=== PATIENT | female | born 1945 | race Caucasian/White ===

== ENCOUNTER → 2016-12-22 | Outpatient (CLI) | payer MEDICARE, OTHER ==
--- NOTE | 2016-12-23 16:09 | MAM ---
History: Well woman exam. Date of exam: 12/22/2016 Services provided: Bilateral full field digital screening mammography. CAD, the images were reviewed with R2 computer aided detection. FINDINGS: Glandular tissue is scattered glandular pattern. Focal asymmetry left breast 1:00. No dominant mass or architectural distortion. IMPRESSION: Incomplete exam. Recommendation: True lateral left breast with spot films. Directed US if indicated clinically. BIRAD CATEGORY: 0 INCOMPLETE Electronically signed by: Shira Fernández MD 12/23/2016 4:08 PM CDT
== END | disposition home or self-care (01) ==
LOC: MAMMO 08:14
PROVIDERS: ATTEND Family Medicine
DX: Z12.31 Encounter for screening mammogram for malignant neoplasm of breast (principal)

== ENCOUNTER → 2017-01-19 | Outpatient (CLI) | payer MEDICARE, OTHER ==
--- NOTE | 2017-01-19 13:57 | MAM ---
History: Mammographic asymmetry left breast. DATE OF SERVICE: 12/22/2016 Services provided: Full field digital diagnostic left mammography. FINDINGS: True lateral view, spot in exaggerated lateral and true lateral projection, axillary tail views are performed and correlated with screening evaluation from 12/22/2016. This represents baseline examination. No persistent asymmetry is noted. A normal appearance to the glandular tissue is confirmed. IMPRESSION: Benign exam. Questioned asymmetry represented a superimposition of otherwise normal glandular tissue. No mammographic abnormality persists on diagnostic evaluation. Recommendation: Routine annual mammography. Findings and recommendations were communicated to the patient. BIRAD CATEGORY: 2 BENIGN Electronically signed by: Shira Fernández MD 01/19/2017 1:57 PM CDT Workstation: [id number]
== END | disposition home or self-care (01) ==
LOC: MAMMO 13:00
PROVIDERS: ATTEND Family Medicine
DX: R92.8 Other abnormal and inconclusive findings on diagnostic imaging of breast (principal)
CPT/HCPCS: 77065; G0206

== ENCOUNTER → 2017-11-09 | Outpatient (CLI) | payer MEDICARE, OTHER ==
--- NOTE | 2017-11-09 10:37 | US ---
THYROID ULTRASOUND CLINICAL INFORMATION: Thyroid nodule. TECHNIQUE: Standard transcutaneous scanning: Two-dimensional and Doppler modes. COMPARISON: No prior ultrasound examinations available. FINDINGS: Thyroid size: Right lobe: 4.7 x 1.6 x 1.5 cm. Left lobe 4.8 x 1.7 x 1.0 centimeters. Isthmus 2.8 mm. Texture: Heterogeneous Estimated total number of nodules >/=1 cm: 2 Number of spongiform nodules >/=2 cm not described below (TR1): 0 Number of mixed cystic and solid nodules >/=1.5 cm not described below (TR2): 0 Nodule #: 1 Maximum size: 2.8 cm; All dimensions 1.7 x 1.2 cm Location: left; lower Composition: solid/almost completely solid (2) Echogenicity: hypoechoic (2) Shape: not [id number]-fnih-tvwj (0) Margins: smooth (0) Echogenic foci: none (0) ACR TI-RADS total points: 4. ACR TI-RADS risk category: TR4 (4-6 points) ACR TI-RADS recommendation: Ultrasound-guided fine needle aspiration Nodule #: 2 Maximum size: 1.0 cm; All dimensions 0.8 x 0.8 cm Location: right; mid Composition: solid/almost completely solid (2) Echogenicity: very hypoechoic (3) Shape: not mdytel-yqmy-qkod (0) Margins: smooth (0) Echogenic foci: peripheral calcifications (2) ACR TI-RADS total points: 7. ACR TI-RADS risk category: TR5 (>/=7 points) ACR TI-RADS recommendation: Ultrasound-guided fine needle aspiration Nodule #: 3 Maximum size: 0.7 cm; All dimensions 0.7 x 0.6 cm Location: right; lower Composition: solid/almost completely solid (2) Echogenicity: hypoechoic (2) Shape: not fguzca-mbpz-kbix (0) Margins: smooth (0) Echogenic foci: large comet-tail artifacts (0) ACR TI-RADS total points: 4. ACR TI-RADS risk category: TR4 (4-6 points) ACR TI-RADS recommendation: Follow-up ultrasound in 1 year Nodule #: 4 Maximum size: 0.7 cm; All dimensions 0.7 x 0.5 cm Location: right; upper Composition: solid/almost completely solid (2) Echogenicity: hypoechoic (2) Shape: not bbhkuj-bwgy-eyzj (0) Margins: smooth (0) Echogenic foci: none (0) ACR TI-RADS total points: 4.. ACR TI-RADS risk category: TR4 (4-6 points) ACR TI-RADS recommendation: Follow-up ultrasound in 1 year No distinct solid mass or cyst in the adjacent soft tissues. No parenchymal edema or calcifications. Normal Doppler vascularity. IMPRESSION: 1. 2.8 cm hypoechoic solid mass in the lower left lobe with well-defined margins, parallel orientation, and no calcifications. ACR TI RADS risk category TR 4. Recommend recommend ultrasound-guided fine-needle aspiration sampling. Please see below.* 2. 1.0 cm very hypoechoic solid mass in the mid right thyroid lobe with peripheral calcifications. Well marginated with parallel orientation. ACR TI RADS risk category TR 5. Recommend ultrasound-guided fine-needle aspiration sampling. 3. Hypoechoic solid masses in the right thyroid lobe less than 1 cm in diameter. Well marginated with parallel orientation and no calcifications. ACR TI RADS risk category TR 4. Since these are less than 1 cm diameter, one year ultrasound follow-up is recommended. *ACR TI-RADS recommendations: TR5 (>/=7 points) - FNA if >/=1 cm, follow-up if 0.5 - 0.9 cm every year for 5 years TR4 (4-6 points) - FNA if >/=1.5 cm, follow-up if 1 - 1.4 cm in 1, 2, 3 and 5 years TR3 (3 points) - FNA if >/=2.5 cm, follow -up if 1.5 - 2.4 cm in 1, 3 and 5 years TR2 (2 points) and TR1 (0 points) - No FNA or follow-up * ACR TI-RADS recommends that no more than two nodules with the highest ACR TI-RADS total point should be biopsied and no more than four nodules should be followed. Electronically signed by: Tim Cortes MD 11/09/2017 10:35 AM CDT
== END ==
LOC: US 08:57
PROVIDERS: ATTEND Family Medicine
DX: E04.1 Nontoxic single thyroid nodule (principal)

== ENCOUNTER → 2020-01-21 | Outpatient (CLI) | payer OTHER ==
--- NOTE | 2020-01-21 15:06 | MAM ---
EXAM DESCRIPTION: 3D Screening BILATERAL : Digital Mammography. CLINICAL HISTORY: 74 years Female ANNUAL SCREENING . No complaints. No personal history of breast cancer. Remote family history of breast cancer. Menarche age 11. Childbirth age 23. Hysterectomy age 39. HRT previously.. Lifetime risk of developing breast cancer (Tyrer-Cuzick model)(%): 4.0. COMPARISON: Digital screening 2-D mammography December 2016 and diagnostic 2-D mammography January 2017.. TECHNIQUE: Bilateral CC and MLO projection full-field images, digital tomosynthesis mammographic technique. Bilateral digital 2-D full-field MLO images. CAD available for 2-D images. FINDINGS: The breast parenchymal density pattern is: Heterogeneously dense breast tissue, which may obscure small masses. No skin thickening or nipple retraction. Mass density in the lower outer quadrant of the posterior third of the right breast approximately 5.7 cm from the nipple at the 4:00 position. Not associated with microcalcifications. Not well seen on the prior study. No new focal, stellate mass or density, focal asymmetry , and no suspicious microcalcifications left breast. IMPRESSION: BI-RADS CATEGORY: 0 - INCOMPLETE- Need additional imaging evaluation. RECOMMENDATIONS: FOLLOW-UP: Recall for additional imagin-D full-field and tomosynthesis right breast in the LM projection. Directed right breast ultrasound region of interest... Written communication concerning the IMPRESSION and Follow-up, will be mailed to the patient and referring health care provider. Electronically signed by: Tim Cortes MD 01/21/2020 3:05 PM CDT
== END ==
LOC: MAMMO 10:00
PROVIDERS: ATTEND Obstetrics & Gynecology
DX: Z12.31 Encounter for screening mammogram for malignant neoplasm of breast (principal)

== ENCOUNTER → 2020-02-26 | Outpatient (CLI) | payer OTHER ==
--- NOTE | 2020-02-26 20:14 | MAM ---
EXAM DESCRIPTION: 3D Diagnostic, Right (accession [id number]), Breast,Right (accession [id number]): Ultrasound CLINICAL HISTORY: 74 yearsFemale. Abnormal screening. . Mass density upper outer quadrant right breast. Lifetime risk of developing breast cancer (Tyrer-Cuzick model)(%): 4.0. COMPARISON: Bilateral screening digital breast tomosynthesis January 20. TECHNIQUE: Right breast LM projection full-field images, digital tomosynthesis technique. Right breast 2-D digital full-field images: LM projection. CAD available for 2-D images.. Transcutaneous scanning of the right breast utilizing deng-scale and Doppler modes. Scanning performed by the public safety dispatcher ; observation by Dr. Cortes. FINDINGS: The breast parenchymal density pattern is: Heterogeneously dense breast tissue, which may obscure small masses. No skin thickening or nipple retraction partially circumscribed mass density same density as fibroglandular tissues, lower outer quadrant posterior third right breast abutting the pectoral muscle. No definite microcalcifications. Ultrasound: Scanning posterior right breast lower outer quadrant. Anterior fatty tissues and posterior fibroglandular tissues. Circumscribed hypoechoic nodule at the interface between fatty tissues and fibroglandular tissues measuring 8.9 x 7.4 mm, wider than tall orientation and posterior acoustic enhancement. Decreased echogenic hilum but vascular. Most likely a reactive lymph node, and unlikely fibroadenoma. IMPRESSION: Benign exam. BIRAD CATEGORY: 2 BENIGN FINDINGS. RECOMMENDATIONS: FOLLOW UP: Return to routine digital bilateral mammographic screening, one year interval from January 2020. Written communication explaining the IMPRESSION and follow-up, will be mailed to the patient and referring health care provider. The FINDINGS and the FOLLOW-UP plan were reviewed in person with the patient after the examination. According to the [employer], yearly mammograms are recommended starting at age 40 and continuing as long as a woman is in good health. Any breast change noted on a breast self-exam should be reported promptly to the patient's healthcare provider. Breast MRI is recommended for women with an approximately 20-25% or greater lifetime risk of breast cancer, including women with a strong family history of breast or ovarian cancer and women who have been treated for Hodgkin's disease. A negative mammographic report should not delay tissue diagnosis in patients with significant clinical history or physical findings. Extremely dense breast tissue limits the sensitivity of digital mammography. Electronically signed by: Tim Cortes MD 02/26/2020 8:12 PM CDT
== END ==
LOC: US 13:00
PROVIDERS: ATTEND Obstetrics & Gynecology
DX: N63.11 Unspecified lump in the right breast, upper outer quadrant (principal)
CPT/HCPCS: 76641; 77065; G0279